=== PATIENT | male | born 1955 | race Caucasian/White ===

== ENCOUNTER → 2024-06-03 | Outpatient (CLI) | payer MEDICARE, MEDICAID, SELFPAY ==
--- NOTE | 2024-06-03 15:00 | CT_ITS ---
STUDY: LOW DOSE CT LUNG CANCER SCREENING REASON FOR EXAM: Male, 68 years old. HX NICOTINE DEPENDENCE RADIATION DOSAGE (If Supplied By Facility): CTDIvol = ( 3.18 ) mGy, DLP = ( 119.14 ) mGycm TECHNIQUE: No contrast was administered. Low dose technique was utilized (average mAS-38 and kVp 120). 1.25 mm axial source images with a slice interval of 1.25-mm were reconstructed in lung windows. 2.5 mm axial source images with a slice interval of 2.5-mm were reconstructed in lung windows. 5.0 mm axial source images with a slice interval of 5.0-mm were reconstructed in soft tissue windows. Nodule measured using lung windows on PACS and/or independent workstation with automated measurement of minimum and maximum diameter. Nodule measurement reported as average diameter rounded to the nearest whole number. Growth is defined as an increase ins size of greater than 1.5 mm. COMPARISON: None. FINDINGS: Total lung nodules (excluding granulomas): None. No nodules or spiculated lesions or masses are present. Emphysema: Moderate Endobronchial lesion: None Aorta: No aneurysmal dilatation Coronary arteries: There are interstitial fibrotic changes of the lungs are hyperinflated. No visualized pneumonic consolidation. There is no demonstrated pleural abnormality. Normal heart size and pericardium. There are calcifications of the coronary arteries. Normal mediastinum. Normal hilar regions. Normal unenhanced pulmonary arteries. There is atherosclerotic calcification of the aortic arch with tortuosity and elongation of the aortic arch and descending thoracic aorta. There are multi-level degenerative changes of the thoracic spine. A moderate size hiatal hernia is present. CT/Low Dose CT Lung Screening IMPRESSION: 1. COPD/emphysema 2. Interstitial fibrosis 3. Lung-RADS category 2 - Continue annual screening with LDCT in 12 months. IMPORTANT NOTES FOR USE: ACR Lung-RADS Version 1.0 Assessment Categories Release Date: 2021 Classification system Category 0 (Incomplete)- prior CT studies were performed but are not available, lungs incompletely imaged, findings suggest inflammation or infection Category 1 (negative, <1% chance of malignancy) (no lung nodules/lung nodule(s) with specific findings favoring benign nodule(s)) Category 2 (benign appearance or behavior, <1% chance of malignancy) juxtapleural nodule <10mm mean diameter at baseline OR new and smooth, solid, oval, lentiform, or triangular Category 3 nodules that are stable or decreased at 6 months Category 3 (probably benign, 1-2% chance of malignancy) solid nodule(s)(between 6 and 8 mm at baseline; new nodule between 4 mm and 6 mm) Category 4A lesion, stable or decreased in size at 3-month follow-up (excluding airway nodules) Category 4A (suspicious, 5-15% chance of malignancy) (version 1.1 change previously suspicious) solid nodule(s) (?8 mm to <15 mm at baseline or growing nodule(s) <8 mm) Category 4B (very suspicious, >15% chance of malignancy) stable or growing airway nodule, segmental or more proximal (solid nodule(s) ? 15 mm at baseline or new or growing, and ?8 mm) Category 4X (very suspicious, >15% chance of malignancy) category 3 or 4 nodules with additional features or imaging findings that increase the suspicion of malignancy Modified categories [X]S (e.g. 3S ) if there is a clinically significant or potentially significant non-lung cancer finding Electronically Signed: Adolph Rosales MD at 9:04 EDT Reading Location ID and State: [facility] / [place] , Service support ,
== END | disposition home or self-care (01) ==
LOC: CT 14:36
PROVIDERS: PCP Internal Medicine Infectious Disease; Referring Provider Internal Medicine Pulmonary Disease; Visit Provider Internal Medicine Pulmonary Disease
DX: Z12.2 Encounter for screening for malignant neoplasm of respiratory organs (principal); Z87.891 Personal history of nicotine dependence
CPT/HCPCS: 71271

== ENCOUNTER → 2025-06-14 | Outpatient (CLI) | payer MEDICARE, MEDICAID, SELFPAY ==
--- NOTE | 2025-06-14 08:27 | CT_ITS ---
PROCEDURE: LOW DOSE CT LUNG SCREENING 06/14/2025 REASON FOR EXAM: Z87.891 TECHNIQUE: Procedure Code: [id number] Modality: CT Procedure: LOW DOSE CT LUNG SCREENING Coronal and Sagittal reconstruction series were provided. One or more dose reduction techniques were used (e.g., Automated exposure control, adjustment of the mA and/or kV according to patient size, use of iterative reconstruction technique). REFERENCE LINK: TRData Lung-RADS RADIATION DOSE SUMMARY: CTDlvol: 4.0 mGy DLP: 168 mGycm COMPARISON: 06/03/2024 FINDINGS: PULMONARY NODULES: (Only nodules >3mm are reported) Nodules described below are on series 3 unless otherwise specified. Pulmonary Nodules: No new suspicious pulmonary nodules. Hardware:Unremarkable Lymph Nodes:Unremarkable Heart and Vasculature:Atherosclerotic calcifications of the thoracic aorta. Thoracic aorta and pulmonary arteries have normal contours; noncontrast technique limits evaluation. Coronary Artery Calcifications: Present Lungs and Airways: Stable emphysematous lung changes with fibrotic changes. Pleura:Unremarkable Upper Abdomen:Unremarkable Bones:Degenerative changes of the thoracic spine. CT/Low Dose CT Lung Screening IMPRESSION: No new suspicious pulmonary nodules. Coronary artery calcification (CAC) is is present Lung-RADS Category: 2 BENIGN (BASED ON IMAGING FEATURES OR INDOLENT BEHAVIOR). RECOMMEND 12-MONTH SCREENING LDCT. Other Significant Findings: Reading [facility]
== END | disposition home or self-care (01) ==
PROVIDERS: PCP Internal Medicine Infectious Disease; Referring Provider Internal Medicine Pulmonary Disease; Visit Provider Internal Medicine Pulmonary Disease
DX: Z87.891 Personal history of nicotine dependence (principal)
CPT/HCPCS: 71271